=== PATIENT | male | born 1990 | race Two or more races ===

== ENCOUNTER 2017-06-08 19:42 | Emergency (ER) | payer MEDICAID ==
[~2017-06-08] VITALS: Ht 190.5 cm; Wt 56.2 kg
[~2017-06-08 19:42] MED LIST: ALBUTEROL2.5 MG/3 M INH; ATIVAN1 MG ORAL; BLEPH-105 ML BOTH EYES; NORCO 5-325 TA1 EACH ORAL; OPCON-A EYE DRO15 ML BOTH EYES; REGLAN10 MG ORAL; TRAMADOL HCL50 MG ORAL; VERTICALM25 MG ORAL
[2017-06-08] MEDS ORDERED: Tetanus/Diptheria/Pertussis Vaccine 0.5ml Syr IM ONE (20:15)
[2017-06-08] MEDS ORDERED: Polysporin Oint 30gm TOPIC SCH (20:15)
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
[2017-06-08 20:20] VITALS: BP 114/71
[2017-06-08 20:45] VITALS: BP 134/78
[2017-06-08] MEDS ORDERED: Bacitracin Oint UD TOPIC ONE (20:45)
== END 2017-06-08 20:50 | disposition home or self-care (01) ==
LOC: EMR 20:18
DX: S50.811A Abrasion of right forearm, initial encounter (principal); Z23 Encounter for immunization; J45.909 Unspecified asthma, uncomplicated; F41.9 Anxiety disorder, unspecified; V43.62XA Car passenger injured in collision with other type car in traffic accident, initial encounter; Y92.410 Unspecified street and highway as the place of occurrence of the external cause
CPT/HCPCS: 90471; 90715; 99284

== ENCOUNTER 2018-01-17 07:25 | Emergency (ER) | payer MEDICAID ==
[~2018-01-17] VITALS: Ht 190.5 cm; Wt 72.6 kg
[2018-01-17] MEDS ORDERED: IBUPROFEN600 MG ORAL (07:46)
[2018-01-17 07:50] VITALS: BP 127/79
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
== END 2018-01-17 07:50 | disposition home or self-care (01) ==
LOC: EMR 07:48
DX: S09.90XA Unspecified injury of head, initial encounter (principal); S10.93XA Contusion of unspecified part of neck, initial encounter; Y04.2XXA Assault by strike against or bumped into by another person, initial encounter; Y93.9 Activity, unspecified; Y92.9 Unspecified place or not applicable; F41.9 Anxiety disorder, unspecified
CPT/HCPCS: 99283

== ENCOUNTER 2018-05-20 18:13 | Emergency (ER) | payer MEDICAID ==
[~2018-05-20] VITALS: Ht 190.5 cm; Wt 68.0 kg
[~2018-05-20 18:13] MED LIST changes: +IBUPROFEN600 MG ORAL
[2018-05-20 18:39] VITALS: BP 130/82
[2018-05-20] MEDS ORDERED: Bupivacaine 0.5% Inj 30 ml vial INJ ONE ×2 (19:00→19:30)
[2018-05-20] MEDS ORDERED: Bupivacaine 0.25% Inj 30ml INJ ONE (19:00)
--- NOTE | 2018-05-20 22:34 | Emergency Room Report ---
History of Present Illness General Chief Complaint: Laceration Source: Patient (Norma Helton) Present Illness HPI 28-year-old male presents emergency department complaining of 10 out of 10 in severity pain localized to the left palm 1 hour. Patient reports that he cut his hand jumping over a chain-link fence. Patient does not know when his last tetanus vaccination was. Patient reports some bleeding at this time he denies taking blood thinning medications. Denies numbness, tingling or loss of sensation or gross motor movements of the extremity/ hand/fingers. (Norma Helton) Allergies: Coded Allergies: No Known Allergies (Unverified , 04/10/14) Patient History Past Medical History: see triage record Past Surgical History: none Pertinent Family History: none Reviewed Nursing Documentation: PMH: Agreed; PSxH: Agreed (Norma Helton) Nursing Documentation-PMH Past Medical History: No Stated History Hx Asthma: Yes Hx Neurological Problems: Yes - anxiety (Norma Helton) Review of Systems All Other Systems: negative except mentioned in HPI (Norma Helton) Physical Exam Vital Signs Date Time Temp Pulse Resp B/P (MAP) Pulse Ox O2 Delivery O2 Flow Rate FiO2 05/20/18 18:25 98.7 100 20 130/82 96 Room Air 98.8 Sp02 EP Interpretation: reviewed, normal General Appearance: no apparent distress, alert, GCS 15, non-toxic Head: normocephalic, atraumatic ENT: hearing grossly normal, normal voice Neck: full range of motion Respiratory: chest non-tender, lungs clear, normal breath sounds, speaking full sentences Cardiovascular #1: regular rate, rhythm, normal capillary refill Genitourinary: normal inspection Musculoskeletal: back normal, gait/station normal, normal range of motion, other - good strength in the flexor tendons of involved fingers. Neurologic: alert, oriented x3, responsive, motor strength/tone normal, sensory intact, speech normal, grossly normal Psychiatric: judgement/insight normal Skin: normal color, no rash, warm/dry, well hydrated, laceration - Left palm laceration approx 7 cm in length- stellate, grossly contaminated. (Norma Helton) Procedures Laceration/Wound Repair Laceration/Wound Repair : Consent: Verbal Wound Location: upper extremity Wound's Depth, Shape: irregular, stellate Wound Length (cm): 8 Irrigated w/ Saline (ccs): 1000 Betadine Prep?: Yes Anesthesia: other - bupivicaine 0.5% Volume Anesthetic (ccs): 5 Wound Debrided: minimal Wound Repaired With: sutures Suture Size/Type: 4:0 Number of Sutures: 12 Layer Closure?: Yes Deep Layer Suture Size/Type: 4:0, other - vycril Sterile Dressing Applied?: Yes Splint Applied?: Yes Type of Splint Applied: Index finger Sling Applied?: No Patient Tolerated: Well Complications: None Progress Median nerve block at the level of the wrist (Norma Helton) Additional Procedure Procedure Narrative Median nerve block performed by me after alcohol prep. Some anxiety and dizziness with injection however, transient and tolerated well. (Dio Giraldo M.D.) Medical Decision Making PA Attestation Dr. Giraldo is my supervising Physician whom patient management has been discussed with. (Norma Helton) Diagnostic Impression: Primary Impression: Laceration ER Course 28-year-old male presents emergency department complaining of 10 out of 10 in severity pain localized to the left palm 1 hour. Patient reports that he cut his hand jumping over a chain-link fence. Patient does not know when his last tetanus vaccination was. Patient reports some bleeding at this time he denies taking blood thinning medications. Denies numbness, tingling or loss of sensation or gross motor movements of the extremity/ hand/fingers. -Pt. Right Hand dominant Ddx considered but are not limited to laceration, tendon injury, cellulitis, amputation Vital signs: are WNL, pt. is afebrile H&PE are most consistent with: Left palm laceration approx 7 cm in length- stellate, grossly contaminated. ORDERS: none required at this time, the diagnosis is clinical ED INTERVENTIONS: -Tetanus vaccine was administered as pt. vaccination status was unknown. - The wound was copiously irrigated with normal saline, and explored for foreign body for which no FB was found. - pt. is anesthetized with Bupivacaine - 2 Deep Vycril sutures were used to approximate the underlying subcutaneous fat of the open wound. - The wound was approximated and closed using 1 running, 11, interrupted, Ethilon 4.0 sutures. -Bacitracin and sterile dressing is applied. -Finger Splint applied to the index finger and palm along by geotechnical intern. Pt. remains neurovascularly intact. Jason wrap applied by geotechnical intern. Pt. remains neurovascularly intact. Discussed with patient: That we make every effort to approximate the laceration as best as we can so that scarring will be as cosmetically pleasing as possible with our limited cosmetic skill set in the Emergency dept. Regardless of our best efforts there will be scarring after laceration repair. The extent of scarring is unknown at this time. DISCHARGE: At this time pt. is stable for d/c to home. Will provide printed patient care instructions, and any necessary prescriptions. Care plan and follow up instructions have been discussed with the patient prior to discharge. (Norma Helton) Last Vital Signs Date Time Temp Pulse Resp B/P (MAP) Pulse Ox O2 Delivery O2 Flow Rate FiO2 05/20/18 18:39 98.8 78 20 130/82 96 Room Air 98.8 (Norma Helton) Disposition: HOME, SELF-CARE Condition: Stable Scripts Acetaminophen* (TYLENOL EXTRA STRENGTH*) 500 Mg Tablet 500 MG ORAL Q6H, #20 TAB 0 Refills Prov: Norma Helton 05/20/18 Bacitracin/Polymyxin B Sulfate (BACITRACIN-POLYMYXIN OINTMENT) 28.35 Gm Oint...g. 1 APPLIC TP BID, #28.3 GM Prov: Norma Helton 05/20/18 Cephalexin* (KEFLEX*) 500 Mg Capsule 500 MG ORAL EVERY 12 HOURS, #14 CAP 0 Refills Prov: Norma Helton 05/20/18 Referrals: NOT CHOSEN [facility]/,REFERRING (PCP) Patient Instructions: Laceration Care, Adult Additional Instructions: Take medications as directed. Follow up with a Primary Care Provider in 3-5 days, even if your symptoms have resolved. --Please review list of primary care clinics, if you do not already have a primary care provider Return sooner to ED if new symptoms occur, or current symptoms become worse. - Please note that this Emergency Department Report was dictated using [employer] technology software, occasionally this can lead to erroneous entry secondary to interpretation by the dictation equipment. Norma Helton May 20, 2018 22:34 Dio Giraldo M.D. May 23, 2018 11:37
[2018-05-20] MEDS ORDERED: Bacitracin Oint UD TOPIC ONE ×2 (22:38→22:45)
[2018-05-20] MEDS ORDERED: BACITRACIN-P28.35 GM TP (22:42)
[2018-05-20] MEDS ORDERED: TYLENOL EXTRA500 MG ORAL (22:42)
[2018-05-20] MEDS ORDERED: CEPHALEXIN500 MG ORAL (22:42)
[2018-05-20 23:01] VITALS: BP 130/82
[2018-05-20 23:08] VITALS: BP 130/82
[2018-05-20] MEDS ORDERED: Tetanus/Diptheria/Pertussis Vaccine 0.5ml Syr IM ONE (23:15)
== END 2018-05-20 23:09 | disposition home or self-care (01) ==
LOC: EMR 20:12
DX: S61.412A Laceration without foreign body of left hand, initial encounter (principal); J45.909 Unspecified asthma, uncomplicated; Z23 Encounter for immunization; F41.9 Anxiety disorder, unspecified; W45.8XXA Other foreign body or object entering through skin, initial encounter; Y92.9 Unspecified place or not applicable
CPT/HCPCS: 12002; 90471; 90715; 99283; J3490; Z7502

== ENCOUNTER 2018-05-21 16:15 | Emergency (ER) | payer MEDICAID ==
[~2018-05-21] VITALS: Ht 190.5 cm; Wt 72.6 kg
[~2018-05-21 16:15] MED LIST changes: +BACITRACIN-P28.35 GM TP; +CEPHALEXIN500 MG ORAL; +TYLENOL EXTRA500 MG ORAL
--- NOTE | 2018-05-21 16:33 | Emergency Room Report ---
History of Present Illness General Chief Complaint: Wound Recheck/Suture Removal Source: Patient, Medical Record Present Illness HPI 28 YO male Presents to the emergency department for wound check of laceration that was sutured here in the department last night. Patient states that he was wrestling with one of his friends and he felt a pop and is worried that he may have popped a stitch. Patient denies bleeding he denies pain he denies fevers, chills erythema. Allergies: Coded Allergies: No Known Allergies (Unverified , 04/10/14) Patient History Past Medical History: see triage record Past Surgical History: none Pertinent Family History: none Immunizations: UTD Reviewed Nursing Documentation: PMH: Agreed; PSxH: Agreed Nursing Documentation-PMH Past Medical History: No History, Except For Hx Asthma: Yes Hx Neurological Problems: Yes - anxiety Review of Systems All Other Systems: negative except mentioned in HPI Physical Exam Vital Signs Date Time Temp Pulse Resp B/P (MAP) Pulse Ox O2 Delivery O2 Flow Rate FiO2 05/21/18 16:18 98.4 70 18 133/75 95 Room Air 98.4 Sp02 EP Interpretation: reviewed, normal General Appearance: no apparent distress, alert, GCS 15, non-toxic Head: normocephalic, atraumatic Eyes: bilateral eye normal inspection, bilateral eye PERRL ENT: hearing grossly normal, normal voice Neck: full range of motion Respiratory: lungs clear, normal breath sounds, speaking full sentences Cardiovascular #1: regular rate, rhythm Musculoskeletal: back normal, gait/station normal, normal range of motion Neurologic: alert, oriented x3, responsive, motor strength/tone normal, sensory intact, speech normal, grossly normal Psychiatric: judgement/insight normal Skin: normal color, no rash, warm/dry, well hydrated, wd healing/no infection noted - healing previously repaired left palm laceration, sutures all appear intact. Lymphatic: no adenopathy Medical Decision Making PA Attestation Dr. Sher is my supervising Physician whom patient management has been discussed with. Diagnostic Impression: Primary Impression: Encounter for wound re-check ER Course 28 YO male Presents to the emergency department for wound check of laceration that was sutured here in the department last night. Patient states that he was wrestling with one of his friends and he felt a pop and is worried that he may have popped a stitch. Patient denies bleeding he denies pain he denies fevers, chills erythema. Ddx considered but are not limited to ruptured sutures, cellulitis, dehiscence just to name a few. Vital signs: are WNL, pt. is afebrile H&PE are most consistent with healing previously repaired left palm laceration , sutures all appear intact. ORDERS: none required at this time, the diagnosis is clinical ED INTERVENTIONS: -wound examined -Bacitracin applied. -Sterile dressing applied. Long index finger Splint applied by water technician. Pt. remains neurovascularly intact. d/w pt. to continue taking po abx and to look for signs of infection . DISCHARGE: At this time pt. is stable for d/c to home. Will provide printed patient care instructions, and any necessary prescriptions. Care plan and follow up instructions have been discussed with the patient prior to discharge. Last Vital Signs Date Time Temp Pulse Resp B/P (MAP) Pulse Ox O2 Delivery O2 Flow Rate FiO2 05/21/18 16:18 98.4 70 18 133/75 95 Room Air 98.4 Disposition: HOME, SELF-CARE Condition: Stable Patient Instructions: Wound Check Additional Instructions: Take previously prescribed medications as directed. Limit Use of the left hand. Follow up with a Primary Care Provider in 3-5 days, even if your symptoms have resolved. --Please review list of primary care clinics, if you do not already have a primary care provider Return sooner to ED if new symptoms occur, or current symptoms become worse. - Please note that this Emergency Department Report was dictated using [employer] learning technology software, occasionally this can lead to erroneous entry secondary to interpretation by the dictation equipment. Norma Helton May 21, 2018 16:33
[2018-05-21] MEDS ORDERED: Bacitracin Oint UD TOPIC ONE (16:45)
[2018-05-21 16:53] VITALS: BP 133/75
[2018-05-21 16:58] VITALS: BP 133/75
== END 2018-05-21 16:59 | disposition home or self-care (01) ==
LOC: EMR 16:36
DX: Z48.00 Encounter for change or removal of nonsurgical wound dressing (principal); S61.412D Laceration without foreign body of left hand, subsequent encounter
CPT/HCPCS: 29130; 99282

== ENCOUNTER 2018-06-08 21:01 | Emergency (ER) | payer MEDICAID ==
[~2018-06-08] VITALS: Ht 190.5 cm; Wt 59.0 kg
[2018-06-08] MEDS ORDERED: Bacitracin Oint UD TOPIC ONE ×2 (22:10→22:15)
--- NOTE | 2018-06-08 22:14 | Emergency Room Report ---
History of Present Illness General Chief Complaint: Wound Recheck/Suture Removal Source: Patient Present Illness HPI Is a 28-year-old male who is right-hand dominant. He presents with chief complaint of right knee pain. 2 days ago he was in a car and was "doing something with a chick." Said that he hurt his right knee. His been icing it down the last 2 days. He felt some swelling to the lateral aspect of it. Walking on it without a problem. No fever chills but no nausea no vomiting. Since his here, he wanted his left hand to be checked. He had laceration and was sutured 7 days ago. Now wanted to look at it. No drainage or fever. Denies any other complaint. Allergies: Coded Allergies: No Known Allergies (Unverified , 04/10/14) Patient History Past Medical History: see triage record, old chart reviewed Past Surgical History: none Pertinent Family History: none Social History: Denies: drug use Immunizations: UTD Reviewed Nursing Documentation: PMH: Agreed; PSxH: Agreed Nursing Documentation-PMH Past Medical History: No Stated History Hx Asthma: Yes Hx Neurological Problems: Yes - anxiety Review of Systems Eye: Denies: eye pain, blurred vision ENT: Denies: ear pain, nose congestion, throat swelling Respiratory: Denies: cough, shortness of breath Cardiovascular: Denies: chest pain, palpitations Gastrointestinal: Denies: abdominal pain, diarrhea, nausea, vomiting Musculoskeletal: Reports: joint pain, joint swelling; Denies: back pain Skin: Denies: rash Neurological: Denies: headache, numbness Endocrine: Denies: increased thirst, increased urine Hematologic/Lymphatic: Denies: easy bruising All Other Systems: negative except mentioned in HPI Physical Exam Vital Signs Date Time Temp Pulse Resp B/P (MAP) Pulse Ox O2 Delivery O2 Flow Rate FiO2 06/08/18 21:45 98.2 80 18 107/67 97 Room Air 98.2 vitals normal Sp02 EP Interpretation: reviewed, normal General Appearance: well appearing, no apparent distress, alert Head: normocephalic, atraumatic Eyes: bilateral eye PERRL, bilateral eye EOMI ENT: hearing grossly normal, normal pharynx Neck: full range of motion, supple, no meningismus Respiratory: chest non-tender, lungs clear, normal breath sounds Cardiovascular #1: regular rate, rhythm, no murmur Gastrointestinal: normal bowel sounds, non tender, no mass, no organomegaly, no bruit, non-distended Musculoskeletal: back normal, gait/station normal, normal range of motion, other - Left hand: Sutures are intact. Wound is still has slight gaping. I do not feel that it's time for the sutures to be removed. Neurologic: alert, oriented x3 Psychiatric: mood/affect normal Skin: warm/dry Medical Decision Making Diagnostic Impression: Primary Impression: Encounter for wound re-check Additional Impression: Knee sprain and strain ER Course Is a with a right knee sprain. No evidence of any fracture dislocation. No need for x-ray. Knee is otherwise stable. We'll discharge home. Wound is clean. We'll probably need another week before suture removal. Last Vital Signs Date Time Temp Pulse Resp B/P (MAP) Pulse Ox O2 Delivery O2 Flow Rate FiO2 06/08/18 21:45 98.2 80 18 107/67 97 Room Air 98.2 Status: improved Disposition: HOME, SELF-CARE Condition: Stable Patient Instructions: Wound Check Additional Instructions: Follow-up in a week for suture removal. Ice pack to the knee. Return if symptom worsen. DIVINE MORALES M.D. Jun 08, 2018 22:14
[2018-06-08 22:30] VITALS: BP 107/62
[2018-06-08 23:36] VITALS: BP 107/67
[2018-06-16] MEDS ORDERED: BACITRACIN-P28.35 GM TP (19:40)
== END 2018-06-08 23:36 | disposition home or self-care (01) ==
LOC: EMR 22:21
DX: S83.91XA Sprain of unspecified site of right knee, initial encounter (principal); X58.XXXA Exposure to other specified factors, initial encounter; Y92.89 Other specified places as the place of occurrence of the external cause; Z48.00 Encounter for change or removal of nonsurgical wound dressing; J45.909 Unspecified asthma, uncomplicated; F41.9 Anxiety disorder, unspecified
CPT/HCPCS: 99282

== ENCOUNTER 2018-06-25 20:05 | Emergency (ER) | payer MEDICAID ==
[~2018-06-25] VITALS: Ht 190.5 cm; Wt 63.5 kg
[2018-06-25 20:16] VITALS: BP 128/68
--- NOTE | 2018-06-25 21:27 | Emergency Room Report ---
History of Present Illness General Chief Complaint: Wound Recheck/Suture Removal Source: Medical Record Present Illness HPI Patient came in for wound check and suture removal. He was called several times but never showed up. No provider saw this patient. Allergies: Coded Allergies: No Known Allergies (Unverified , 04/10/14) Nursing Documentation-[facility] Past Medical History: No History, Except For Hx Asthma: Yes Hx Neurological Problems: Yes - anxiety Physical Exam Vital Signs Date Time Temp Pulse Resp B/P (MAP) Pulse Ox O2 Delivery O2 Flow Rate FiO2 06/25/18 20:16 98.0 77 17 128/68 96 Room Air 98.1 Medical Decision Making Diagnostic Impression: Primary Impression: Encounter for wound re-check Last Vital Signs Date Time Temp Pulse Resp B/P (MAP) Pulse Ox O2 Delivery O2 Flow Rate FiO2 06/25/18 20:16 98.0 77 17 128/68 96 Room Air 98.1 Disposition: LEFT W/OUT BEING SEEN Condition: Stable DIVINE MORALES M.D. Jun 25, 2018 21:27
[2018-06-25 21:58] VITALS: BP 127/69
--- NOTE | 2018-06-26 00:02 | Emergency Room Report ---
History of Present Illness General Chief Complaint: Wound Recheck/Suture Removal Source: Medical Record Present Illness HPI Patient's 28-year-old male who presented for suture removal on his left hand. Patient recent the suture. After cutting his hand climbing a fence. Patient denied any fever or discharge. He denied any severe pain.The patient had been able to move his fingers normally.The patient was initially thought to eloped however he was still present emergency department. Allergies: Coded Allergies: No Known Allergies (Unverified , 04/10/14) Patient History Reviewed Nursing Documentation: PMH: Agreed; PSxH: Agreed Nursing Documentation-PMH Past Medical History: No History, Except For Hx Asthma: Yes Hx Neurological Problems: Yes - anxiety Physical Exam Vital Signs Date Time Temp Pulse Resp B/P (MAP) Pulse Ox O2 Delivery O2 Flow Rate FiO2 06/25/18 20:16 98.0 78 17 128/68 96 Room Air 98.0 General Appearance: well appearing Head: normocephalic, atraumatic ENT: hearing grossly normal, normal voice Neck: full range of motion, supple Respiratory: no respiratory distress, speaking full sentences Musculoskeletal: other - left hand laceration well healed with some maceration skin near suture Neurologic: normal gait Psychiatric: mood/affect normal Skin: wd healing/no infection noted Medical Decision Making Diagnostic Impression: Primary Impression: Encounter for removal of sutures ER Course Patient presented for wound check. Differential diagnosis included was not limited to infected wound, nonhealed wound, neuroma, healed wound. The patient 's wound appears well-healed. The sutures were removed. The patient was noted to have evidence of some maceration to the superficial wound edges the skin was otherwise intact. The patient advised at this would exfoliate over time. There does not appear to be evidence of infection. Last Vital Signs Date Time Temp Pulse Resp B/P (MAP) Pulse Ox O2 Delivery O2 Flow Rate FiO2 06/25/18 21:58 98.1 75 19 127/69 97 Room Air 98.0 Status: improved Disposition: HOME, SELF-CARE Condition: Stable Patient Instructions: Suture Removal, Care After Kamar Reza MD Jun 26, 2018 00:02
== END 2018-06-25 21:58 | disposition home or self-care (01) ==
LOC: EMR 20:35
DX: Z48.00 Encounter for change or removal of nonsurgical wound dressing (principal); Z53.21 Procedure and treatment not carried out due to patient leaving prior to being seen by health care provider
CPT/HCPCS: 99282

== ENCOUNTER 2018-07-12 19:56 | Emergency (ER) | payer MEDICAID ==
[~2018-07-12] VITALS: Ht 190.5 cm; Wt 65.8 kg
[2018-07-12] MEDS ORDERED: IBUPROFEN600 MG ORAL (20:15)
[2018-07-12] MEDS ORDERED: CEPHALEXIN500 MG ORAL (20:15)
[2018-07-12 20:23] VITALS: BP 125/76
[2018-07-12 20:24] VITALS: BP 125/76
--- NOTE | 2018-07-12 20:36 | Emergency Room Report ---
History of Present Illness General Chief Complaint: General Complaint Source: Patient Present Illness HPI Patient presents emergency department today complaining of persistent left hand pain. Patient sustaining a laceration over his left hand at the palmar aspect at the area of the first and second digit near the second digit MCP area. The wound was repaired about month ago and the wound is healing but is still slightly inflamed and patient is complaining of pain in his left hand worse with movement. No other injuries noted. He is followed primary care physician in a couple weeks. He's requesting antibiotics. He denies any discharge. No other complaints are noted.No other modifying factors. No other associated signs and symptoms. No other complaints were noted. Allergies: Coded Allergies: No Known Allergies (Unverified , 04/10/14) Patient History Past Medical History: asthma, other - Anxiety Past Surgical History: none Pertinent Family History: none Social History: Denies: smoking, alcohol use, drug use Reviewed Nursing Documentation: PMH: Agreed; PSxH: Agreed Nursing Documentation-PMH Past Medical History: No History, Except For Hx Asthma: Yes Hx Neurological Problems: Yes - anxiety Review of Systems All Other Systems: negative except mentioned in HPI Physical Exam Vital Signs Date Time Temp Pulse Resp B/P (MAP) Pulse Ox O2 Delivery O2 Flow Rate FiO2 07/12/18 20:06 98.6 83 16 125/76 96 98.6 07/12/18 20:23 Room Air Sp02 EP Interpretation: reviewed, normal General Appearance: normal inspection, well appearing, no apparent distress, alert Head: atraumatic Eyes: bilateral eye normal inspection ENT: normal ENT inspection, hearing grossly normal, normal voice Neck: normal inspection, full range of motion, supple, no bony tend Respiratory: normal inspection, lungs clear, normal breath sounds, no respiratory distress, no retraction, no wheezing Cardiovascular #1: regular rate, rhythm, no edema Gastrointestinal: normal inspection, normal bowel sounds, non tender, soft, no guarding, no hernia Genitourinary: no CVA tenderness Musculoskeletal: normal inspection, back normal, normal range of motion Neurologic: normal inspection, alert, responsive, speech normal Psychiatric: normal inspection, judgement/insight normal, mood/affect normal Skin: other - Scar formation left hand palmar aspect, swelling and mild erythema Medical Decision Making Diagnostic Impression: Primary Impression: Hand pain, left ER Course Patient presents emergency department complaining of left hand pain. Differential considerations include cellulitis, scar formation, joint infection , arthritis. Patient's exam fairly benign but given the mild erythema and pain I felt the patient would benefit from antibiotics patient was given prescription of Keflex. Recommend outpatient follow-up. Patient is advised to follow up with primary doctor in 2-3 days and return the emergency room for any worsening symptoms and as needed. Last Vital Signs Date Time Temp Pulse Resp B/P (MAP) Pulse Ox O2 Delivery O2 Flow Rate FiO2 07/12/18 20:24 98.6 85 16 125/76 96 98.6 07/12/18 20:23 Room Air Status: improved Disposition: HOME, SELF-CARE Condition: Stable Scripts Ibuprofen* (MOTRIN*) 600 Mg Tablet 600 MG ORAL Q8H PRN for For Pain, #10 TAB 0 Refills Prov: Cleveland Way MD 07/12/18 Cephalexin* (KEFLEX*) 500 Mg Capsule 500 MG ORAL EVERY 6 HOURS for 7 Days, CAP Prov: Cleveland Way MD 07/12/18 Referrals: NOT CHOSEN IPA/,REFERRING (PCP) Patient Instructions: Joint Pain Cleveland Way MD Jul 12, 2018 20:36
== END 2018-07-12 20:30 | disposition home or self-care (01) ==
LOC: EMR 20:20
DX: M79.642 Pain in left hand (principal); F41.9 Anxiety disorder, unspecified
CPT/HCPCS: 99283

== ENCOUNTER 2018-08-17 16:36 | Emergency (ER) | payer MEDICAID ==
[~2018-08-17] VITALS: Ht 190.5 cm; Wt 63.5 kg
[2018-08-17] MEDS ORDERED: Albuterol/Ipratropium 3ml neb HHN ONE (17:00)
--- NOTE | 2018-08-17 17:02 | Emergency Room Report ---
History of Present Illness General Chief Complaint: Upper Respiratory Illness Source: Patient, Medical Record Present Illness HPI 28-year-old male patient presents ER complaining of difficulty breathing for the past 3 days. Patient reports symptoms worsen night. Reports intermittent cough during this time. Reports cough with mucus, denies pops his. Ports history of asthma, states he is an inhaler without relief of symptoms. Denies fever, chest pain, abdominal pain, vomiting. Denies history of stroke or VT. Denies history of blood pressure. Denies smoking or marijuana use. Allergies: Coded Allergies: No Known Allergies (Unverified , 04/10/14) Patient History Past Medical History: see triage record Reviewed Nursing Documentation: PMH: Agreed; PSxH: Agreed Nursing Documentation-PMH Past Medical History: No History, Except For Hx Asthma: Yes Hx Neurological Problems: No - anxiety Review of Systems All Other Systems: negative except mentioned in HPI Physical Exam Vital Signs Date Time Temp Pulse Resp B/P (MAP) Pulse Ox O2 Delivery O2 Flow Rate FiO2 08/17/18 16:50 97.9 73 18 129/86 97 Room Air Sp02 EP Interpretation: reviewed, normal General Appearance: well appearing, no apparent distress, alert, GCS 15, non- toxic Head: normocephalic, atraumatic Eyes: bilateral eye normal inspection, bilateral eye PERRL ENT: hearing grossly normal, normal pharynx, no angioedema, normal voice, uvula midline, moist mucus membranes Neck: full range of motion Respiratory: lungs clear, no rhonchi, no respiratory distress, no accessory muscle use, no wheezing, speaking full sentences, other - no stridor Cardiovascular #1: regular rate, rhythm, no edema Genitourinary: no CVA tenderness Musculoskeletal: back normal, digits/nails normal, gait/station normal, normal range of motion, non-tender Neurologic: alert, oriented x3, responsive, motor strength/tone normal, sensory intact Psychiatric: mood/affect normal Skin: no rash Medical Decision Making PA Attestation Dr. Blackburn is my supervising Physician whom patient management has been discussed with. Diagnostic Impression: Primary Impression: Asthma exacerbation ER Course Pt presents to ED c/o difficulty breathing 3 days. DDX considered but are not limited to asthma, viral URI, influenza, bronchitis, pneumonia. denies chest pain, no history of cardiac symptoms, denies smoking history, low suspicion for cardiac etiology of symptoms, does not require cardiac work up this time, follow with primary care provider for further testing and treatment. VITAL SIGNS are WNL, patient is afebrile. Ordered breathing treatment and medication. ER COURSE No rhonchi or rales, patient afebrile, chest x-ray shows no acute disease, low suspicion for pneumonia at this time. Patient provided with prednisone Duoneb breathing treatment provided. Following treatment patient states breathing symptoms improved on the ER. Patient is resting comfortably in no acute distress. ER precautions given. DISCHARGE: -Rx given for Prednisone. Begin taking tomorrow. -Rx provided for Albuterol MDI. -Rx provided for Tessalon Perles At this time pt is stable for d/c to home. Patient is resting comfortably in no acute distress, nontoxic appearing, able to answer questions without difficulty. Patient to take medications as instructed Will provide with patient care instructions and any necessary prescriptions. Care plan and follow-up instructions provided. Patient instructed to follow-up with primary care provider in 3 - 5 days. Patient questions asked and answered. Patient reports understanding and agreement to treatment plan. ER precautions given. Patient instructed to return to ER immediately for any new or worsening of symptoms including but not limited to increasing SOB, persistent fever. - Please note that this Emergency Department Report was dictated using Ur[employer] machine operator technology software, occasionally this can lead to erroneous entry secondary to interpretation by the dictation equipment. Chest X-Ray Diagnostic Results Chest X-Ray Diagnostic Results : Chest X-Ray Ordered: Yes # of Views/Limited/Complete: 1 View Indication: Chest Pain EP Interpretation: Yes PA Xray: Interpretation reviewed, by supervising MD, and agrees with findings. Interpretation: no consolidation, no effusion, no pneumothorax, no acute cardiopulmonary disease Impression: No acute disease SHYANNE Scribe Text Raghavendra العلي PA-C Last Vital Signs Date Time Temp Pulse Resp B/P (MAP) Pulse Ox O2 Delivery O2 Flow Rate FiO2 08/17/18 16:50 97.9 73 18 129/86 97 Room Air Status: improved Disposition: HOME, SELF-CARE Condition: Stable Scripts Prednisone* (PREDNISONE*) 20 Mg Tablet 40 MG ORAL DAILY for 4 Days, #8 TAB Prov: Uriah العلي P.Cecile 08/17/18 Benzonatate* (TESSALON PERLE*) 100 Mg Capsule 100 MG ORAL THREE TIMES A DAY, #15 PERLE Prov: Uriah العلي 08/17/18 Albuterol Sulfate* (ALBUTEROL SULFATE MDI*) 8.5 Gm Hfa.aer.ad 2 PUFF INH Q6H, #1 INH 0 Refills Prov: Uirah العلي 08/17/18 Patient Instructions: Asthma Attack Prevention, Upper Respiratory Infection, Adult Additional Instructions: Followup with primary care provider in 3 -5 days. Discuss further treatment and referral. Take medications as directed. Patient questions asked and answered. ER precautions given, patient instructed to return to ER immediately for any new or worsening of symptoms. Uriah العلي Aug 17, 2018 17:02
[2018-08-17 17:20] VITALS: BP 129/86
[2018-08-17] MEDS ORDERED: ALBUTEROL SULF8.5 GM INH (17:54)
[2018-08-17] MEDS ORDERED: PREDNISONE20 MG ORAL (17:54)
[2018-08-17] MEDS ORDERED: TESSALON PERLE100 MG ORAL (17:54)
[2018-08-17 17:59] VITALS: BP 122/87
--- NOTE | 2018-08-18 09:41 | Diagnostic Imaging Report ---
Indication: Chest pain Comparison: 04/10/2014 A single view chest radiograph was obtained. Findings: Cardiomediastinal appearance is within normal limits for age. The lungs are clear. Pulmonary vascularity is appropriate. The diaphragmatic contour is smooth and costophrenic angles are sharp. No pleural effusions are identified. The bones are unremarkable. Impression: No acute findings
== END 2018-08-17 18:00 | disposition home or self-care (01) ==
LOC: EMR 17:26
DX: J45.901 Unspecified asthma with (acute) exacerbation (principal); R07.9 Chest pain, unspecified
CPT/HCPCS: 71045; 94640; 94664; 99284; J7512; J7620

== ENCOUNTER 2018-08-25 15:26 | Emergency (ER) | payer MEDICAID ==
[~2018-08-25] VITALS: Ht 190.5 cm; Wt 63.5 kg
[~2018-08-25 15:26] MED LIST changes: +ALBUTEROL SULF8.5 GM INH; +PREDNISONE20 MG ORAL; +TESSALON PERLE100 MG ORAL
--- NOTE | 2018-08-25 16:14 | Emergency Room Report ---
History of Present Illness General Chief Complaint: Dyspnea/Respdistress Source: Patient Present Illness HPI 28-year-old male patient presents ER complaining of difficulty breathing. reports history of asthma. Patient was seen here one week ago for similar symptoms. Reports that symptoms resolved briefly but have returned. Reports mild intermittent cough during this time. Denies fever. Reports has not taken prednisone as instructed. Chest x-ray previous visit was negative. Denies history of heart attack or stroke. States has follow-up appointment with his doctor on the of this month. Denies chest pain, SOB, abdominal pain, TOBIN, calf pain. Allergies: Coded Allergies: No Known Allergies (Unverified , 04/10/14) Patient History Past Medical History: see triage record Reviewed Nursing Documentation: PMH: Agreed; PSxH: Agreed Nursing Documentation-PMH Past Medical History: No History, Except For Hx Asthma: Yes Hx Neurological Problems: No - anxiety Review of Systems All Other Systems: negative except mentioned in HPI Physical Exam Vital Signs Date Time Temp Pulse Resp B/P (MAP) Pulse Ox O2 Delivery O2 Flow Rate FiO2 08/25/18 15:39 97.5 84 20 139/86 96 Room Air Sp02 EP Interpretation: reviewed, normal General Appearance: well appearing, no apparent distress, alert, GCS 15, non- toxic Head: normocephalic, atraumatic Eyes: bilateral eye normal inspection, bilateral eye PERRL ENT: hearing grossly normal, normal pharynx, no angioedema, normal voice, uvula midline, moist mucus membranes Neck: full range of motion Respiratory: lungs clear, no rhonchi, no respiratory distress, no accessory muscle use, no wheezing, decreased breath sounds, speaking full sentences, other - no stridor Cardiovascular #1: regular rate, rhythm, no edema Musculoskeletal: back normal, digits/nails normal, gait/station normal, normal range of motion, non-tender Neurologic: alert, oriented x3, responsive, motor strength/tone normal, sensory intact Psychiatric: mood/affect normal Skin: no rash Medical Decision Making PA Attestation Dr. Randle is my supervising Physician whom patient management has been discussed with. Diagnostic Impression: Primary Impression: Asthma attack ER Course Pt presents to ED c/o asthma symptoms. DDX considered but are not limited to asthma, viral URI, influenza, bronchitis, pneumonia. No rhonchi or rales, patient afebrile, low suspicion for pneumonia at this time , does not require x-rays or imaging. Reviewed previous Xray. VITAL SIGNS are WNL, patient is afebrile. Ordered breathing treatment and medication. ER COURSE Patient provided with prednisone Duoneb breathing treatment provided. Following treatment patient states no longer having difficulty with breathing. Patient is resting comfortably in no acute distress. Declined needs for refill for albuterol inhaler. instructed to complete prednisone medication as previously instructed. ER precautions given. Followup at scheduled appointment. DISCHARGE: At this time pt is stable for d/c to home. Patient is resting comfortably in no acute distress, nontoxic appearing, able to answer questions without difficulty. Patient to take medications as instructed Will provide with patient care instructions and any necessary prescriptions. Care plan and follow-up instructions provided. Patient instructed to follow-up with primary care provider in 3 - 5 days. Patient questions asked and answered. Patient reports understanding and agreement to treatment plan. ER precautions given. Patient instructed to return to ER immediately for any new or worsening of symptoms including but not limited to increasing SOB, persistent fever. - Please note that this Emergency Department Report was dictated using [employer] of speech pathology technology software, occasionally this can lead to erroneous entry secondary to interpretation by the dictation equipment. Last Vital Signs Date Time Temp Pulse Resp B/P (MAP) Pulse Ox O2 Delivery O2 Flow Rate FiO2 08/25/18 15:39 97.5 84 20 139/86 96 Room Air Status: improved Disposition: HOME, SELF-CARE Condition: Stable Patient Instructions: Asthma, Acute Bronchospasm, Shortness of Breath, Easy-to- Read Additional Instructions: Followup with primary care provider at scheduled appointment. Take prednisone previously prescribed. Take medications as directed. Patient questions asked and answered. ER precautions given, patient instructed to return to ER immediately for any new or worsening of symptoms. Uriah العلي Aug 25, 2018 16:14
[2018-08-25] MEDS ORDERED: Albuterol/Ipratropium 3ml neb HHN ONE (16:15)
[2018-08-25 17:40] VITALS: BP 139/86
[2018-08-25 17:41] VITALS: BP 139/86
== END 2018-08-25 17:42 | disposition home or self-care (01) ==
LOC: EMR 16:24
DX: J45.909 Unspecified asthma, uncomplicated (principal); F41.9 Anxiety disorder, unspecified
CPT/HCPCS: 94640; 94664; 99283; J7512; J7620

== ENCOUNTER 2019-06-18 23:42 | Emergency (ER) | payer MEDICAID, OTHER ==
[~2019-06-18] VITALS: Ht 188 cm; Wt 72.6 kg
--- NOTE | 2019-06-19 | NUR ---
ED Nurse Note: Recieved pt on [place] awake and alert, pt here with c/o dry mouth and headache which are resolved at this time, pt looking about in room, has paranoia appearance and strange behaviors, pt states he is really unsure of what he wants but he dont feel right, asked if any recreational drug use and pt wont answer and his friend at bedside starts laughing, pt denies cp or any pain, will resume care as ordered.
[2019-06-19] MEDS ORDERED: IBUPROFEN600 MG ORAL (00:19)
--- NOTE | 2019-06-19 00:19 | Emergency Room Report ---
History of Present Illness General Chief Complaint: General Complaint Source: Patient Present Illness HPI Is a 29-year-old male with no past medical history. He presents with chief complaint of dizziness. He said he described his dizziness. He said he felt foggy. Lights bother his eyes. He said he felt dryness in his lip. He does not have any symptoms right now. No room spinning. No trauma. No fever chills. He said he has no trauma. Said he has a history of migraine. Usually take Pedialyte and it helps. Denies any other complaint. Denies any alcohol or drugs. Denies any smoking. Allergies: Coded Allergies: No Known Allergies (Unverified , 04/10/14) Patient History Past Medical History: see triage record, old chart reviewed Past Surgical History: none Pertinent Family History: none Social History: Denies: smoking Immunizations: other Reviewed Nursing Documentation: PMH: Agreed; PSxH: Agreed Nursing Documentation-PMH Hx Asthma: Yes Hx Neurological Problems: No - anxiety Review of Systems Eye: Denies: eye pain, blurred vision ENT: Denies: ear pain, nose congestion, throat swelling Respiratory: Denies: cough, shortness of breath Cardiovascular: Denies: chest pain, palpitations Gastrointestinal: Denies: abdominal pain, diarrhea, nausea, vomiting Musculoskeletal: Denies: back pain, joint pain Skin: Denies: rash Neurological: Reports: dizziness; Denies: headache, numbness Endocrine: Denies: increased thirst, increased urine Hematologic/Lymphatic: Denies: easy bruising All Other Systems: negative except mentioned in HPI Physical Exam Vital Signs Date Time Temp Pulse Resp B/P (MAP) Pulse Ox O2 Delivery O2 Flow Rate FiO2 06/18/19 23:48 98.2 96 18 135/91 (106) 97 Room Air Vitals normal Sp02 EP Interpretation: reviewed, normal General Appearance: well appearing, no apparent distress, alert Head: normocephalic, atraumatic Eyes: bilateral eye PERRL, bilateral eye EOMI ENT: hearing grossly normal, normal pharynx Neck: full range of motion, supple, no meningismus Respiratory: chest non-tender, lungs clear, normal breath sounds Cardiovascular #1: regular rate, rhythm, no murmur Gastrointestinal: normal bowel sounds, non tender, no mass, no organomegaly, no bruit, non-distended Musculoskeletal: back normal, gait/station normal, normal range of motion Psychiatric: mood/affect normal Medical Decision Making Diagnostic Impression: Primary Impression: Dizziness of unknown cause ER Course Patient with vague symptoms. He is walking around without any problem. No evidence of TIA or CVA. No evidence of deficit that warrant CT scan. Accucheck unremarkable. Last Vital Signs Date Time Temp Pulse Resp B/P (MAP) Pulse Ox O2 Delivery O2 Flow Rate FiO2 06/18/19 23:48 98.2 96 18 135/91 (106) 97 Room Air Status: unchanged Disposition: HOME, SELF-CARE Condition: Stable Scripts Ibuprofen* (MOTRIN*) 600 Mg Tablet 600 MG ORAL THREE TIMES A DAY, #30 TAB 0 Refills Prov: Sanchez Blankenship MD 06/19/19 Additional Instructions: Follow-up with your doctor in 7 days. Return if symptoms worsen. Sanchez Blankenship MD Jun 19, 2019 00:19
[2019-06-19 00:25] VITALS: BP 135/91
--- NOTE | 2019-06-19 00:25 | NUR ---
ER DISCHARGE NOTE: Patient is cleared to be discharged per ERMD, pt is aox4, on room air, with stable vital signs. pt was given dc and prescription instructions, pt was able to verbalize understanding, pt id band removed without complications. pt is able to ambulate with steady gait. pt took all belongings.
== END 2019-06-19 00:25 | disposition home or self-care (01) ==
LOC: EMR 23:58
DX: R42 Dizziness and giddiness (principal); J45.909 Unspecified asthma, uncomplicated; F41.9 Anxiety disorder, unspecified
CPT/HCPCS: 82962; 99282

== ENCOUNTER 2019-06-26 01:51 | Emergency (ER) | payer OTHER ==
[~2019-06-26] VITALS: Ht 188 cm; Wt 77.1 kg
--- NOTE | 2019-06-26 02:12 | NUR ---
ED Nurse Note: pt walked in to ED C/O dyspnea about 2 hours ago. Pt stated that he took albuterol inhaler and is ineffective. pt also reports dry cough. pt alert x4. VSS
[2019-06-26 02:14] VITALS: BP 136/80
[2019-06-26] MEDS ORDERED: Albuterol ud Inhalation HHN ONE (02:30)
[2019-06-26] MEDS ORDERED: Ipratropium 0.02% Inh Soln 2.5ml UD HHN ONE (02:30)
[2019-06-26] MEDS ORDERED: PREDNISONE20 MG ORAL (03:01)
[2019-06-26 03:09] VITALS: BP 136/80
--- NOTE | 2019-06-26 03:10 | NUR ---
ED Nurse Note: Pt cleared by health care Provider for discharge. DC instructions/prescription was given and explained to pt and verbalized understanding of teachings. All medical deviecs such as ID band removed. Pt is AAO x4, ambulatory and left with all personal belongings.
--- NOTE | 2019-06-26 05:28 | Emergency Room Report ---
History of Present Illness General Chief Complaint: Dyspnea/Respdistress Source: Patient Present Illness HPI 29-year-old male presents ED for evaluation. Complaining of shortness of breath tonight. History of asthma. States he uses inhaler without significant relief. Denies fevers or chills. Denies cough. Denies chest pain. No other aggravating relieving factors. Denies any other associated symptoms Allergies: Coded Allergies: No Known Allergies (Unverified , 04/10/14) Patient History Past Medical History: asthma Past Surgical History: none Pertinent Family History: none Social History: Denies: smoking, alcohol use, drug use Immunizations: UTD Reviewed Nursing Documentation: PMH: Agreed; PSxH: Agreed Nursing Documentation-PMH Past Medical History: No History, Except For Hx Asthma: Yes Hx Neurological Problems: No - anxiety Review of Systems All Other Systems: negative except mentioned in HPI Physical Exam Vital Signs Date Time Temp Pulse Resp B/P (MAP) Pulse Ox O2 Delivery O2 Flow Rate FiO2 06/26/19 01:55 98.4 76 20 142/79 (100) 98 Room Air Sp02 EP Interpretation: reviewed, normal General Appearance: no apparent distress, alert, GCS 15, non-toxic Head: normocephalic Eyes: bilateral eye normal inspection, bilateral eye PERRL ENT: normal ENT inspection Neck: normal inspection Respiratory: decreased breath sounds, wheezing Cardiovascular #1: regular rate, rhythm, no edema Gastrointestinal: normal bowel sounds, non tender, soft, non-distended, no guarding, no rebound Rectal: deferred Genitourinary: no CVA tenderness Musculoskeletal: normal inspection Neurologic: alert, oriented x3, responsive, motor strength/tone normal, sensory intact, speech normal Psychiatric: normal inspection Skin: no rash Lymphatic: normal inspection Medical Decision Making Diagnostic Impression: Primary Impression: Asthma exacerbation Qualified Codes: J45.901 - Unspecified asthma with (acute) exacerbation ER Course Hospital Course 29 yo M presents with SOB, wheezing Differential diagnoses include: URI, bronchitis, asthma/COPD, pneumonia Clinical course Patient placed on stretcher. After initial history, physical exam reveals a male in no acute distress. Bilateral TM unremarkable. No pharyngeal erythema. No tonsillar exudates. No lymphadenopathy. Mild wheezing noted on exam, no signs of respiratory distress or retractions. Patient given Prednisone and albuterol/atrovent treatment in ED with symptoms improved. I discussed findings with patient. Will discharge to home with prescription for prednisone. States he has his inhaler. Safe for discharge for close outpatient follow-up. States he has a PMD Diagnosis - asthma exacerbation Stable and discharged home with prescriptions for prednisone. Instructed to followup with PMD. Return to ED if symptoms recur or worsen Last Vital Signs Date Time Temp Pulse Resp B/P (MAP) Pulse Ox O2 Delivery O2 Flow Rate FiO2 06/26/19 03:09 98.2 18 136/80 98 Room Air 06/26/19 02:33 84 79 Status: improved Disposition: HOME, SELF-CARE Condition: Stable Scripts Prednisone* (PREDNISONE*) 20 Mg Tablet 40 MG ORAL DAILY, #10 TAB Prov: Blu Thompson MD 06/26/19 Patient Instructions: Asthma, Adult, [id number] Blu Thompson MD Jun 26, 2019 05:28
== END 2019-06-26 03:10 | disposition home or self-care (01) ==
LOC: EMR 02:34
DX: J45.901 Unspecified asthma with (acute) exacerbation (principal); F41.9 Anxiety disorder, unspecified
CPT/HCPCS: 94640; 99284; J7512

== ENCOUNTER 2020-01-27 00:12 | Emergency (ER) | payer OTHER ==
[~2020-01-27] VITALS: Ht 188 cm; Wt 74.8 kg
[2020-01-27 00:35] VITALS: BP 149/81
--- NOTE | 2020-01-27 00:35 | NUR ---
ED Nurse Note: Pt walked into ED for medication refill. Pt states he feels mildly short of breath and needs an inhaler since he left his at his sisters. Pt is aaox4, breathing is normal and unlabored. No sign of SOB at this time. No cardiac distress. Will continue to monitor.
[2020-01-27] MEDS ORDERED: Albuterol 90mcg Inhaler 8gm INH ONE (00:45)
[2020-01-27] MEDS ORDERED: PREDNISONE20 MG ORAL (00:52)
[2020-01-27] MEDS ORDERED: ALBUTEROL SULF8.5 G1 INH (00:52)
--- NOTE | 2020-01-27 00:55 | NUR ---
ER DISCHARGE NOTE: Patient is cleared to be discharged per ERMD, pt is aox4, on room air, with stable vital signs. pt was given dc and prescription instructions, pt was able to verbalize understanding, pt id band removed. pt is able to ambulate with steady gait. pt took all belongings.
--- NOTE | 2020-01-27 02:29 | Emergency Room Report ---
History of Present Illness General Chief Complaint: Medication Refill Source: Patient Present Illness HPI 29-year-old male presents ED for evaluation. History of asthma. States that about 1 hour prior to arrival he felt short of breath. States his inhaler is at another house which he cannot get at this time. Is here to get a refill of his inhaler. Denies shortness of breath at this time. Denies cough. Denies fevers or chills. No other aggravating relieving factors. Denies any other associated symptoms Allergies: Coded Allergies: No Known Allergies (Unverified , 04/10/14) COVID-19 Screening Contact w/high risk pt: No Recent Travel to affected area: No Experienced COVID-19 symptoms?: No Patient History Past Medical History: asthma Past Surgical History: none Pertinent Family History: none Social History: Denies: smoking, alcohol use, drug use Immunizations: UTD Reviewed Nursing Documentation: PMH: Agreed; PSxH: Agreed Nursing Documentation-PMH Hx Asthma: Yes Hx Neurological Problems: No - anxiety Review of Systems All Other Systems: negative except mentioned in HPI Physical Exam Vital Signs Date Time Temp Pulse Resp B/P (MAP) Pulse Ox O2 Delivery O2 Flow Rate FiO2 01/26/ 00:28 98.1 88 18 149/81 (103) 98 Room Air Sp02 EP Interpretation: reviewed, normal General Appearance: no apparent distress, alert, GCS 15, non-toxic Head: normocephalic, atraumatic Eyes: bilateral eye normal inspection, bilateral eye PERRL ENT: hearing grossly normal, normal pharynx, no angioedema, normal voice Neck: full range of motion, supple/symm/no masses Respiratory: chest non-tender, lungs clear, normal breath sounds, speaking full sentences Cardiovascular #1: regular rate, rhythm, no edema Cardiovascular #2: 2+ carotid (R), 2+ carotid (L), 2+ radial (R), 2+ radial (L) , 2+ dorsalis pedis (R), 2+ dorsalis pedis (L) Gastrointestinal: normal bowel sounds, non tender, soft, non-distended, no guarding, no rebound Rectal: deferred Genitourinary: normal inspection, no CVA tenderness Musculoskeletal: back normal, normal range of motion, gait/station normal, non- tender Neurologic: alert, motor strength/tone normal, oriented x3, sensory intact, responsive, speech normal Psychiatric: judgement/insight normal, memory normal, mood/affect normal, no suicidal/homicidal ideation Reflexes: 3+ bicep (R), 3+ bicep (L), 3+ tricep (R), 3+ tricep (L), 3+ knee (R) , 3+ knee (L) Lymphatic: no adenopathy Medical Decision Making Diagnostic Impression: Primary Impression: Encounter for medication refill Additional Impression: Asthma Qualified Codes: J45.20 - Mild intermittent asthma, uncomplicated ER Course Hospital Course 29 yo M requesting refill of his inhaler. h/o asthma Differential diagnoses include: URI, bronchitis, asthma/COPD, pneumonia Clinical course Patient placed on stretcher. After initial history, physical exam reveals a male in no acute distress. Bilateral TM unremarkable. No pharyngeal erythema. No tonsillar exudates. No lymphadenopathy. good breath sounds bilaterally Patient given Prednisone and albuterol MDI in ED with symptoms improved. Discussed findings with patient. Will discharge home with inhaler and prednisone prescription. Safe for discharge and close outpatient follow-up. I will provide PMD referrals Diagnosis - encounter for medication refill, asthma Stable and discharged home with prescriptions for prednisone, albuterol. Instructed to followup with PMD. Return to ED if symptoms recur or worsen Last Vital Signs Date Time Temp Pulse Resp B/P (MAP) Pulse Ox O2 Delivery O2 Flow Rate FiO2 01/27/20 00:55 98.1 85 18 138/82 99 Room Air Status: improved Disposition: HOME, SELF-CARE Condition: Stable Scripts Prednisone* (PREDNISONE*) 20 Mg Tablet 40 MG ORAL DAILY, #10 TAB Prov: Blu Thompson MD 01/27/20 Albuterol Sulfate* (Albuterol Sulfate Hfa*) 8.5 Gm Hfa.aer.ad 2 PUFF INH Q6H, #1 INH Prov: Blu Thompson MD 01/27/20 Referrals: [facility],REFERRING (PCP) [facility] Patient Instructions: Medicine Refill at the Emergency Department Additional Instructions: because of coronavirus pandemic, we encourage you to stay home and self- isolate. if you develop fevers, cough and shortness of breath not improved with your inhaler, you need to come back to the ER Blu Thompson MD Jan 27, 2020 02:29
== END 2020-01-27 00:55 | disposition home or self-care (01) ==
LOC: EMR 00:43
DX: J45.20 Mild intermittent asthma, uncomplicated (principal); F41.9 Anxiety disorder, unspecified
CPT/HCPCS: J7512; Z7502; 99283

== ENCOUNTER 2020-02-10 00:15 | Emergency (ER) | payer OTHER ==
[~2020-02-10] VITALS: Ht 185.4 cm; Wt 72.6 kg
[~2020-02-10 00:15] MED LIST changes: +ALBUTEROL SULF8.5 G1 INH
[2020-02-10 00:28] VITALS: BP 145/86
--- NOTE | 2020-02-10 00:28 | NUR ---
ED Nurse Note: Pt walked in to ED from home c/o asthma attack x1 day. Reports chest tightness. Has hx of asthma. Per pt, he is taking albuterol at home but no relief. Patient is asking for prednisone stating that it helps him better. Not in any distress. Afebrile. VSS.
[2020-02-10] MEDS ORDERED: QVAR7.3 GM INH (00:42)
[2020-02-10] MEDS ORDERED: PREDNISONE20 MG ORAL (00:42)
--- NOTE | 2020-02-10 00:43 | Emergency Room Report ---
History of Present Illness General Chief Complaint: Asthma Source: Patient Present Illness HPI This is a 29-year-old male with a history of asthma. He presents with chief plaint asthma exacerbation. He stated wheezing better with albuterol but he still felt tightness. He had prednisone before and it helped. He wants a more prednisone. He denies any fever chills but denies any nausea vomiting. Better with inhaler. Worse with exertion. Allergies: Coded Allergies: No Known Allergies (Unverified , 04/10/14) COVID-19 Screening Contact w/high risk pt: No Recent Travel to affected area: No Experienced COVID-19 symptoms?: No Patient History Past Medical History: see triage record, old chart reviewed Past Surgical History: none Pertinent Family History: none Social History: Denies: smoking Immunizations: other Reviewed Nursing Documentation: PMH: Agreed; PSxH: Agreed Nursing Documentation-PMH Hx Asthma: Yes Hx Neurological Problems: No - anxiety Review of Systems Eye: Denies: eye pain, blurred vision ENT: Denies: ear pain, nose congestion, throat swelling Respiratory: Reports: shortness of breath; Denies: cough Cardiovascular: Denies: chest pain, palpitations Gastrointestinal: Denies: abdominal pain, diarrhea, nausea, vomiting Musculoskeletal: Denies: back pain, joint pain Skin: Denies: rash Neurological: Denies: headache, numbness Endocrine: Denies: increased thirst, increased urine Hematologic/Lymphatic: Denies: easy bruising All Other Systems: negative except mentioned in HPI Physical Exam Vital Signs Date Time Temp Pulse Resp B/P (MAP) Pulse Ox O2 Delivery O2 Flow Rate FiO2 5/2/20 00:22 98.1 97 20 145/86 (105) 100 Room Air Vitals normal Sp02 EP Interpretation: reviewed, normal General Appearance: well appearing, no apparent distress, alert Head: normocephalic, atraumatic Eyes: bilateral eye PERRL, bilateral eye EOMI ENT: hearing grossly normal, normal pharynx Neck: full range of motion, supple, no meningismus Respiratory: chest non-tender, lungs clear, normal breath sounds Cardiovascular #1: regular rate, rhythm, no murmur Gastrointestinal: normal bowel sounds, non tender, no mass, no organomegaly, no bruit, non-distended Musculoskeletal: back normal, normal range of motion, gait/station normal Psychiatric: mood/affect normal Medical Decision Making Diagnostic Impression: Primary Impression: Asthma Qualified Codes: J45.21 - Mild intermittent asthma with (acute) exacerbation ER Course The patient is with asthma exacerbation. I gave him a dose of prednisone here. Will prescribe Qvar so. Will discharge home. Last Vital Signs Date Time Temp Pulse Resp B/P (MAP) Pulse Ox O2 Delivery O2 Flow Rate FiO2 02/10/20 00:28 97 20 Room Air 02/10/20 00:28 98.1 145/86 100 Status: improved Disposition: HOME, SELF-CARE Condition: Stable Scripts Beclomethasone Dipropionate 40MCG Oral Inh (QVAR 40*) 7.3 Gm Aer.w.adap 1 PUFF INH TWICE A DAY, #1 GM 0 Refills Prov: Sanchez Blankenship MD 02/10/20 Prednisone* (PREDNISONE*) 20 Mg Tablet 40 MG ORAL DAILY, #8 TAB Prov: Sanchez Blankenship MD 02/10/20 Referrals: NON PHYSICIAN (PCP) Patient Instructions: Asthma, Adult Additional Instructions: Follow-up with your doctor in 7 days. Return if symptoms worsen. Sanchez Blankenship MD February 10, 2020 00:43
[2020-02-10 00:46] VITALS: BP 145/86
--- NOTE | 2020-02-10 00:46 | NUR ---
ED Nurse Note: Pt cleared by ERMD for discharge. DC instructions/prescription was given and explained to pt and verbalized understanding of teachings. All medical deviecs such as ID band removed. Pt is AAO x4, ambulatory and left with all personal belongings.
== END 2020-02-10 00:46 | disposition home or self-care (01) ==
LOC: EMR 00:36
DX: J45.21 Mild intermittent asthma with (acute) exacerbation (principal); F41.9 Anxiety disorder, unspecified
CPT/HCPCS: J7512; Z7502; 99282

== ENCOUNTER 2020-03-30 13:36 | Emergency (ER) | payer OTHER ==
[~2020-03-30] VITALS: Ht 188 cm; Wt 68.9 kg
[~2020-03-30 13:36] MED LIST changes: +QVAR7.3 GM INH
[2020-03-30 13:41] VITALS: BP 125/78
--- NOTE | 2020-03-30 14:07 | Emergency Room Report ---
History of Present Illness General Chief Complaint: Abdominal Pain Source: Patient Present Illness HPI 29 YO male presents to the ED C/o black stool after taking Pepto Bismol for nausea 4 times. Pt. denies vomiting. He denies abdominal pain. Pt. reports decreased appetite. He reports that he was eating very healthy and cooking for himself however the last week he switched to eating all fast food for every meal and has been increase his alcohol intake. He reports dark-colored/black formed stool he denies diarrhea. He denies right red blood per rectum or in the stool. He denies NSAID use. He denies fevers or chills. No other aggravating or relieving factors at this time Allergies: Coded Allergies: No Known Allergies (Unverified , 04/10/14) COVID-19 Screening Contact w/high risk pt: No Recent Travel to affected area: No Experienced COVID-19 symptoms?: No COVID-19 Testing performed BLACKJACK DEALER: No Patient History Past Medical History: see triage record Past Surgical History: none Pertinent Family History: none Reviewed Nursing Documentation: PMH: Agreed; PSxH: Agreed Nursing Documentation-PMH Past Medical History: No History, Except For Hx Asthma: Yes Hx Neurological Problems: No - anxiety Review of Systems All Other Systems: negative except mentioned in HPI Physical Exam Vital Signs Date Time Temp Pulse Resp B/P (MAP) Pulse Ox O2 Delivery O2 Flow Rate FiO2 03/30/20 13:41 97.9 98 18 125/78 (94) 97 Room Air Sp02 EP Interpretation: reviewed, normal General Appearance: no apparent distress, alert, GCS 15, non-toxic Head: normocephalic, atraumatic Eyes: bilateral eye normal inspection, bilateral eye PERRL ENT: hearing grossly normal, normal voice Neck: full range of motion Respiratory: lungs clear, normal breath sounds, speaking full sentences Cardiovascular #1: regular rate, rhythm Gastrointestinal: normal bowel sounds, non tender, soft, non-distended, no guarding Rectal: deferred Genitourinary: normal inspection, no CVA tenderness Musculoskeletal: normal range of motion, gait/station normal, non-tender Neurologic: alert, motor strength/tone normal, oriented x3, sensory intact, responsive, speech normal Psychiatric: judgement/insight normal Skin: normal color Lymphatic: no adenopathy Medical Decision Making PA Attestation Dr. Albarran Is my supervising Physician whom patient management has been discussed with. Diagnostic Impression: Primary Impression: Medication side effect Additional Impression: Nausea alone ER Course 29 YO male presents to the ED C/o black stool after taking Pepto Bismol for nausea 4 times. Pt. denies vomiting. He denies abdominal pain. Pt. reports decreased appetite. He reports that he was eating very healthy and cooking for himself however the last week he switched to eating all fast food for every meal and has been increase his alcohol intake. He reports dark-colored/black formed stool he denies diarrhea. He denies right red blood per rectum or in the stool. He denies NSAID use. He denies fevers or chills. No other aggravating or relieving factors at this time. Ddx considered but are not limited to GI bleed, medication side effect, gastritis, Diverticulitis, acute appy, diarrhea,UC, PUD, GE, pancreatitis, gallstone Vital signs: are WNL, pt. is afebrile H&PE are most consistent with Medication side effect ( Pepto Bismol ) suspect cause of nausea that pt. was taking Pepto for is gastric acid related due to diet. Pt. is non-toxic in appearance. NAD. ORDERS: none required emergently at this time. ED INTERVENTIONS: -- None required at this time. -I do not identify an emergent condition at this time. With current presentation , pt. is stable for close outpatient follow up and conservative treatment. D/ w pt. to return promptly to ED with worsening or new symptoms.- Pt. verbalizes' understanding and agreement with proposed treatment plan.proposed treatment plan. DISCHARGE: At this time pt. is stable for d/c to home. Will provide printed patient care instructions, and any necessary prescriptions. Care plan and follow up instructions have been discussed with the patient prior to discharge. Last Vital Signs Date Time Temp Pulse Resp B/P (MAP) Pulse Ox O2 Delivery O2 Flow Rate FiO2 03/30/20 13:51 98 18 Room Air 03/30/20 13:41 97.9 125/78 (94) 97 Disposition: HOME, SELF-CARE Condition: Stable Scripts Ondansetron Odt* (ZOFRAN ODT*) 4 Mg Tab.rapdis 4 MG BC EVERY 6 HOURS PRN for Nausea & Vomiting, #10 TAB 0 Refills Prov: Norma Helton 03/30/20 Famotidine* (Pepcid 20mg tablet*) 20 Mg Tablet 20 MG ORAL TWICE A DAY, #28 TAB 0 Refills Prov: Norma Helton 03/30/20 Referrals: [facility] Patient Instructions: Nausea, Adult Additional Instructions: ~ ~ An emergent medical condition has not been identified based on this patients presentation, exam and any necessary testing/imaging. The patient is determined to be stable for outpatient follow-up and management of symptoms by a primary care provider. Take medications as directed. Follow up with a Primary Care Provider in 3-5 days, even if your symptoms have resolved. --Please review list of primary care clinics, if you do not already have a primary care provider Return sooner to ED if new symptoms occur, or current symptoms become worse. - Please note that this Emergency Department Report was dictated using [employer] mechanical project engineer technology software, occasionally this can lead to erroneous entry secondary to interpretation by the dictation equipment. Norma Helton Mar 30, 2020 14:07
[2020-03-30] MEDS ORDERED: ONDANSETRON ODT4 MG BC (14:10)
[2020-03-30] MEDS ORDERED: FAMOTIDINE20 MG ORAL (14:10)
[2020-03-30 14:25] VITALS: BP 131/75
== END 2020-03-30 14:25 | disposition home or self-care (01) ==
LOC: EMR 13:59
DX: R11.0 Nausea (principal); T47.6X5A Adverse effect of antidiarrheal drugs, initial encounter; Y92.9 Unspecified place or not applicable; F41.9 Anxiety disorder, unspecified
CPT/HCPCS: 99282

== ENCOUNTER 2020-06-01 23:50 | Emergency (ER) | payer MEDICAID, OTHER ==
[~2020-06-01] VITALS: Ht 188 cm; Wt 79.4 kg
[~2020-06-01 23:50] MED LIST changes: +FAMOTIDINE20 MG ORAL; +ONDANSETRON ODT4 MG BC
[2020-06-02 00:06] VITALS: BP 148/92
--- NOTE | 2020-06-02 00:06 | NUR ---
ED Nurse Note: Pt ambulated into ed from home [place] intermittent headache x 1 day with generalized weakness. Pt states that he believes TOBIN is result of being overly stressed and drinking too much soda. Pt aao x 4, ambultes with steady gait, VSS no ss of distress noted. Awaiting ERMD at bedside. Awaiting further instructions.
--- NOTE | 2020-06-02 00:22 | NUR ---
ED Nurse Note: ERMD at bedside
--- NOTE | 2020-06-02 00:33 | Emergency Room Report ---
History of Present Illness General Chief Complaint: Headache Source: Patient Present Illness HPI The patient presents with a headache which has been intermittent over the last day. He also feels generalized weakness. He was drinking alcohol before this began. He feels somewhat dehydrated at this time. He denies any fevers or chills. There is no history of trauma. 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 He denies any visual changes. There is no numbness or unilateral weakness. The pain was 7/[address] the emergency department however is not present at all at this time. He denies nausea or vomiting. He denies history of migraines. He has been modifying his diet in order to try and deal with how he feels. This is not the worst headache of his life. There is no thunderclap onset. There is no photophobia. He denies increased stress. The patient denies exposure to known COVID-19 contacts. He has been self isolating. The patient was drinking alcohol a few days ago. No sore throat, chest pain, palpitations, nausea, vomiting, diarrhea, dysuria, abdominal pain, shortness of breath, joint pain, rashes, depression, anxiety, dizziness. The patient has a history of asthma and anxiety. Allergies: Coded Allergies: No Known Allergies (Unverified , 04/10/14) COVID-19 Screening Contact w/high risk pt: No Recent Travel to affected area: No Experienced COVID-19 symptoms?: No COVID-19 Testing performed HEAT SET OPERATOR: No Patient History Past Medical History: see triage record Social History: Reports: alcohol use; Denies: smoking Social History Narrative musician Reviewed Nursing Documentation: PMH: Agreed; PSxH: Agreed Nursing Documentation-PMH Past Medical History: No History, Except For Hx Asthma: Yes Hx Neurological Problems: No - anxiety Review of Systems All Other Systems: negative except mentioned in HPI Physical Exam Vital Signs Date Time Temp Pulse Resp B/P (MAP) Pulse Ox O2 Delivery O2 Flow Rate FiO2 06/01/20 23:56 98.4 85 18 148/92 (110) 96 Room Air Sp02 EP Interpretation: reviewed, normal General Appearance: well appearing, no apparent distress, GCS 15 Head: normocephalic, atraumatic Eyes: bilateral eye normal inspection, bilateral eye PERRL, bilateral eye EOMI ENT: normal pharynx, moist mucus membranes Neck: full range of motion, supple Respiratory: lungs clear, normal breath sounds Cardiovascular #1: regular rate, rhythm Cardiovascular #2: 2+ radial (R) Gastrointestinal: normal inspection, non-distended Musculoskeletal: back normal, normal range of motion, gait/station normal Neurologic: alert, motor strength/tone normal, clothing busheler III-XII nml as tested, DTRs symmetric, oriented x3, sensory intact, cerebellar normal, speech normal Psychiatric: mood/affect normal Skin: no rash, warm/dry Medical Decision Making Diagnostic Impression: Primary Impression: Headache Qualified Codes: R51 - Headache ER Course Patient presents with an intermittent headache with generalized weakness. Differential includes tension, migraine, alcohol withdrawal, dehydration, fatigue amongst others. There are no red flag signs signs or symptoms. There is no evidence of meningitis. Symptom complex is against migraine. Patient's risk for COVID-19 is low. Discussed with patient based on his history and physical exam laboratory testing most likely would be normal. This was offered to the patient and he declined. In addition if he was mildly dehydrated and IV of saline might help him feel better. He declined this also. Discussed outpatient observation and also the need for follow-up with his own doctor. Also discussed treatment plan. No apparent medical emergency at this time. Patient stable for outpatient observation and treatment. Last Vital Signs Date Time Temp Pulse Resp B/P (MAP) Pulse Ox O2 Delivery O2 Flow Rate FiO2 06/02/20 00:41 98.4 83 16 122/88 98 Room Air Status: improved Disposition: HOME, SELF-CARE Condition: Improved Dio Giraldo MD Jun 02, 2020 00:33
--- NOTE | 2020-06-02 00:39 | NUR ---
ED Nurse Note: ERMD at bedside
[2020-06-02 00:41] VITALS: BP 122/88
--- NOTE | 2020-06-02 00:41 | NUR ---
ER DISCHARGE NOTE: Patient is cleared to be discharged per ERMD, pt is aox4, 99% on room air, with stable vital signs. pt was given dc instructions, pt was able to verbalize understanding, pt id band removed. pt is able to ambulate with steady gait. pt took all belongings.
== END 2020-06-02 00:41 | disposition home or self-care (01) ==
LOC: EMR 06-02 00:13
DX: R51 Headache (principal); R53.1 Weakness; F41.9 Anxiety disorder, unspecified
CPT/HCPCS: 99282

== ENCOUNTER 2020-06-13 02:12 | Emergency (ER) | payer MEDICAID ==
[~2020-06-13] VITALS: Ht 188 cm; Wt 70.3 kg
--- NOTE | 2020-06-13 02:45 | NUR ---
Nurse Note: Pt walked in c/o headache for 3 days. Pt stated he notices fuzzy and spotty vision in both eyes as well. Pt denies trauma, n/v/d, chest pain, shortness of breath. Pt stated he had s/s previously and was self treated. ERMD at pt side; all safety measures met, will continue to montior.
[2020-06-13] MEDS ORDERED: IMITREX50 MG ORAL (02:46)
--- NOTE | 2020-06-13 02:46 | Emergency Room Report ---
History of Present Illness General Chief Complaint: Headache Source: Patient Present Illness HPI Is a 30-year-old male with no past medical history. He presents with chief complaint of dizziness, headache, floaters. This has been on and off problem for years. Seem to be worse in the last week. No fever chills but no focal deficit. Denies any trauma. He had a CT scan of his head less than a year ago and was negative. He also seen an eye doctor and said everything was fine. Has not take anything for this. It is 5 out of 10. Allergies: Coded Allergies: No Known Allergies (Unverified , 06/13/20) COVID-19 Screening Contact w/high risk pt: No Recent Travel to affected area: No Experienced COVID-19 symptoms?: No COVID-19 Testing performed ANALYSIS CONSULTANT: No Patient History Past Medical History: see triage record, old chart reviewed Past Surgical History: none Pertinent Family History: none Social History: Denies: smoking Immunizations: other Reviewed Nursing Documentation: PMH: Agreed; PSxH: Agreed Nursing Documentation-PMH Past Medical History: No History, Except For Hx Asthma: Yes Hx Neurological Problems: No - anxiety Review of Systems Eye: Denies: eye pain, blurred vision ENT: Denies: ear pain, nose congestion, throat swelling Respiratory: Denies: cough, shortness of breath Cardiovascular: Denies: chest pain, palpitations Gastrointestinal: Denies: abdominal pain, diarrhea, nausea, vomiting Musculoskeletal: Denies: back pain, joint pain Skin: Denies: rash Neurological: Reports: headache; Denies: numbness Endocrine: Denies: increased thirst, increased urine Hematologic/Lymphatic: Denies: easy bruising All Other Systems: negative except mentioned in HPI Physical Exam Vital Signs Date Time Temp Pulse Resp B/P (MAP) Pulse Ox O2 Delivery O2 Flow Rate FiO2 06/13/20 02:23 98.8 67 16 125/78 (94) 96 Room Air Vitals normal Sp02 EP Interpretation: reviewed, normal General Appearance: well appearing, no apparent distress, alert Head: normocephalic, atraumatic Eyes: bilateral eye PERRL, bilateral eye EOMI ENT: hearing grossly normal, normal pharynx Neck: full range of motion, supple, no meningismus Respiratory: chest non-tender, lungs clear, normal breath sounds Cardiovascular #1: regular rate, rhythm, no murmur Gastrointestinal: normal bowel sounds, non tender, no mass, no organomegaly, no bruit, non-distended Musculoskeletal: back normal, normal range of motion, gait/station normal Psychiatric: mood/affect normal Medical Decision Making Diagnostic Impression: Primary Impression: Headache Qualified Codes: R51 - Headache ER Course With headaches and symptoms that he described as floaters/zigzag line. This may be migraine with aura. No focal deficit. No evidence of TIA or CVA. No evidence of meningitis or neoplastic process. Last Vital Signs Date Time Temp Pulse Resp B/P (MAP) Pulse Ox O2 Delivery O2 Flow Rate FiO2 06/13/20 02:23 98.8 67 16 125/78 (94) 96 Room Air Status: unchanged Disposition: HOME, SELF-CARE Condition: Stable Scripts Sumatriptan Succinate* (IMITREX*) 50 Mg Tablet 50 MG ORAL DAILY PRN MIGRAINE, #10 TAB Prov: Sanchez Blankenship MD 06/13/20 Referrals: NON PHYSICIAN (PCP) Patient Instructions: Migraine Headache Additional Instructions: Follow-up with your doctor in 7 days. Return if symptoms worsen. Sanchez Blankenship MD Jun 13, 2020 02:46
[2020-06-13 02:47] VITALS: BP 125/78
[2020-06-13 02:55] VITALS: BP 125/78
--- NOTE | 2020-06-13 02:55 | NUR ---
ER DISCHARGE NOTE: Patient is cleared to be discharged per ERMD. Pt is aox4, on room air, with stable vital signs. Pt was given dc and prescription instructions. Pt was able to verbalize understanding; instructed pt to follow up with primary care provider within one week. Pt ID band removed without complications. Pt is able to ambulate with steady gait. Pt took all belongings.
== END 2020-06-13 02:55 | disposition home or self-care (01) ==
LOC: EMR 02:38
DX: R51 Headache (principal); J45.909 Unspecified asthma, uncomplicated
CPT/HCPCS: 99281

== ENCOUNTER 2020-12-29 13:02 | Emergency (ER) | payer MEDICAID ==
[~2020-12-29] VITALS: Ht 185.4 cm; Wt 81.6 kg
[~2020-12-29 13:02] MED LIST changes: +IMITREX50 MG ORAL
[2020-12-29 13:13] VITALS: BP 162/86
--- NOTE | 2020-12-29 13:13 | NUR ---
pt arrives to ER with complaint of bilateral ear pressure. pt states symptoms began two days. pt describes pain as a feeling of fluid and pressure within both ears. pt denies sore throat, nasal congestion or drainage, and eye drainage. PT AAOX4.
--- NOTE | 2020-12-29 13:24 | Emergency Room Report ---
History of Present Illness General Chief Complaint: Earache Source: Patient Present Illness HPI Patient presents with a full feeling in both of his ears with a muffled sound sensation. This is been going on for at least 2 to 3 days. Denies any fever, sore throat or stuffy nose. He has been exposed to loud music recently. 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 He denies ear pain. There is no drainage from the ears. Patient denies exposure to Covid positive contacts. 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 COVID-19 Screening: Negative COVID-19 Patient History Past Medical History: see triage record, asthma, psych hx - Anxiety Social History: Reports: smoking Social History Narrative Produces music Reviewed Nursing Documentation: PMH: Agreed; PSxH: Agreed Nursing Documentation-PMH Hx Asthma: Yes Hx Neurological Problems: No - anxiety Review of Systems Constitutional: Reports: see HPI ENT: Reports: see HPI Respiratory: Denies: cough, shortness of breath Cardiovascular: Denies: chest pain Gastrointestinal: Denies: nausea Skin: Denies: rash Neurological: Denies: headache Physical Exam Vital Signs Date Time Temp Pulse Resp B/P (MAP) Pulse Ox O2 Delivery O2 Flow Rate FiO2 12/29/20 13:09 97.3 101 18 162/86 (111) 96 Room Air Sp02 EP Interpretation: reviewed, normal General Appearance: well appearing, no apparent distress, GCS 15 Head: normocephalic Eyes: bilateral eye normal inspection, bilateral eye PERRL, bilateral eye EOMI ENT: normal pharynx, TMs + canals normal - With slight bulging without erythema or fluid level, moist mucus membranes Neck: full range of motion Respiratory: lungs clear, normal breath sounds Cardiovascular #1: regular rate, rhythm Cardiovascular #2: 2+ radial (R) Gastrointestinal: normal inspection Musculoskeletal: gait/station normal Neurologic: alert, grossly normal Psychiatric: mood/affect normal Skin: normal color, no rash, warm/dry Medical Decision Making Diagnostic Impression: Primary Impression: Decreased hearing of both ears ER Course Patient presents with decreased hearing in both of his ears without upper respiratory symptomatology. There is no pain also. Differential includes bilateral otitis media, viral syndrome, Covid, trauma due to loud noises amongst others. Based on exam there is no evidence of infection at this time requiring antibiotics. This could still be a viral process involving the middle ear. Symptomatic treatment is indicated. As the patient has a history of anxiety decongestants are contraindicated slightly. Discussed findings with patient. Discussed treatment plan with patient. Discussed the need for protecting his ears from loud sounds. Discussed the need for outpatient evaluation in particular with possible director speech and hearing evaluation. Patient stable for outpatient observation and treatment. Last Vital Signs Date Time Temp Pulse Resp B/P (MAP) Pulse Ox O2 Delivery O2 Flow Rate FiO2 12/29/20 13:13 97.3 18 162/86 96 Room Air 12/29/20 13:09 101 Status: unchanged Disposition: HOME, SELF-CARE Condition: Stable Scripts Chlorpheniramine Maleate (CHLOR-TRIMETON) 4 Mg Tablet 4 MG PO Q6HR, #10 TAB 1 Refill Prov: Dio Giraldo MD 12/29/20 Dio Giraldo MD Dec 29, 2020 13:24
[2020-12-29] MEDS ORDERED: CHLOR-TRIMETON4 MG PO (13:28)
== END 2020-12-29 14:36 | disposition home or self-care (01) ==
LOC: EMR 13:57
DX: H91.93 Unspecified hearing loss, bilateral (principal); F17.200 Nicotine dependence, unspecified, uncomplicated; F41.9 Anxiety disorder, unspecified
CPT/HCPCS: 99282